=== PATIENT | female | born 1950 | race American Indian/Alaskan Native ===

== ENCOUNTER 2020-10-31 03:12 | Emergency (ER) | payer OTHER ==
[2020-10-31 03:22] VITALS: TEMP 98.1; BMI 28.2
[2020-10-31] MEDS ORDERED: ASPIRIN 81 MG CHEWABLE TABLETS PO ONE (03:55)
[2020-10-31] MEDS ORDERED: ASPIRIN 81 MG CHEWABLE TABLETS ONE (04:04)
[2020-10-31] MEDS ORDERED: NITROGLYCERIN SUBLINGUAL 1/200 0.3 MG BTL SL ONE (04:15)
[2020-10-31 04:28] LABS: EOS % 4.4 % (0-4.5); HEMATOCRIT 36.8 % (32.4-45.2); HEMOGLOBIN 12.5 GM/dL (10.7-15.3); LYMPH % 20.7 % (8-40); MCH 30.3 pg (25.7-33.7); MCHC 33.9 g/dl (32.0-36.0); MEAN CELL VOLUME 89.4 fl (80-96); MONO % 7.6 % (3.8-10.2); NEUT % 66.3 % (42.8-82.8); PLATELET COUNT 212 10^3/uL (134-434); RBC 4.12 M/mm3 (3.60-5.2); WHITE BLOOD COUNT 6.6 K/mm3 (4.0-10.0)
[2020-10-31] MEDS ORDERED: NITROGLYCERIN SUBLINGUAL 1/150 0.4 MG TAB ONE (04:30)
[2020-10-31 04:42] LABS: INR 0.9 (0.83-1.09); PROTHROMBIN TIME (PATIENT) 11.1 SEC (9.7-13.0)
[2020-10-31 04:45] LABS: ACTIVATED PTT 27.1 SECONDS (25.2-36.5)
[2020-10-31 04:49] LABS: MAGNESIUM 1.9 mg/dL (1.8-2.4)
[2020-10-31 04:53] LABS: PHOSPHOROUS 3.1 mg/dL (2.5-4.9)
[2020-10-31] MEDS ORDERED: NITROGLYCERIN 2% OINTMENT - 1GM PACKET TD ONE ×2 (05:29→05:37)
[2020-10-31] MEDS ORDERED: HEPARIN NA (PORCINE) 5,000 UNITS/ML 1ML VIAL IVPUSH PRN ×2 (05:31)
[2020-10-31] MEDS ORDERED: HEPARIN INFUSION - 25,000 UNITS/500 ML INFUS.BAG IVPB SCH (05:45)
[2020-10-31] MEDS ORDERED: HEPARIN NA (PORCINE) 5,000 UNITS/ML 1ML VIAL ONE (05:47)
[2020-10-31 06:06] LABS: ALBUMIN 3.5 g/dl (3.4-5.0); BLOOD UREA NITROGEN 17.2 mg/dL (7-18); CALCIUM 8.8 mg/dL (8.5-10.1)
[2020-10-31 06:10] LABS: CREATININE 0.7 mg/dL (0.55-1.3)
[2020-10-31 06:11] VITALS: BP 119/76; PULSE 65
[2020-10-31 06:11] LABS: BILIRUBIN,TOTAL 0.5 mg/dL (0.2-1); TOT PROT 6.8 g/dl (6.4-8.2)
== END 2020-10-31 06:23 | disposition short-term general hospital (02) ==
LOC: JER 03:12
PROC: 3E033GC Introduction of Other Therapeutic Substance into Peripheral Vein, Percutaneous Approach (ICD-10-PCS; principal; 2020-10-31)
PROC: 3E033GC Introduction of Other Therapeutic Substance into Peripheral Vein, Percutaneous Approach (ICD-10-PCS; 2020-10-31)
DX: I21.4 Non-ST elevation (NSTEMI) myocardial infarction (principal)
CPT/HCPCS: 36415; 71045-TC-FY; 80053; 82550; 82553; 83690; 83735; 84100; 84484; 85025; 85610; 85730; 93005; 93010; 99284-25; C9803; J1644; U0003; U0005

== ENCOUNTER 2022-12-18 19:49 | Observation (INO) | payer OTHER ==
[2022-12-18] MEDS ORDERED: FAMOTIDINE 20 MG/50 ML IVPB 20 MG/50 ML MG IVPB ONE ×3 (20:35→21:21)
[2022-12-18] MEDS ORDERED: ONDANSETRON 4 MG/2 ML VIAL IVPUSH ONE (20:35)
[2022-12-18] MEDS ORDERED: ACETAMINOPHEN 1000 MG/100 ML BAG IVPB ONE (20:35)
[2022-12-18] MEDS ORDERED: ACETAMINOPHEN INJECTION 100 ML IVPB ONE (20:55)
[2022-12-18] MEDS ORDERED: ONDANSETRON 4 MG/2 ML VIAL ONE (20:56)
[2022-12-18 21:08] LABS: BASO % 0.6 % (0-2.0); EOS % 2.1 % (0-4.5); HEMATOCRIT 35.8 % (32.4-45.2); HEMOGLOBIN 12.3 GM/dL (10.7-15.3); LYMPH % 18.3 % (8-40); MCH 30.1 pg (25.7-33.7); MCHC 34.3 g/dl (32.0-36.0); MEAN CELL VOLUME 87.6 fl (80-96); PLATELET COUNT 186 10^3/uL (134-434); RBC 4.09 M/mm3 (3.60-5.2); RDW 13.7 % (11.6-15.6); WHITE BLOOD COUNT 7.1 K/mm3 (4.0-10.0)
[2022-12-18 21:16] LABS: INR 0.91 (0.83-1.09); PROTHROMBIN TIME (PATIENT) 10.6 SEC (9.7-13.0)
[2022-12-18 21:19] LABS: ACTIVATED PTT 29.6 SECONDS (25.2-36.5)
[2022-12-18 21:51] LABS: POTASSIUM 3.8 mmol/L (3.5-5.1)
[2022-12-18 21:53] LABS: CALCIUM 8.6 mg/dL (8.5-10.1)
[2022-12-18 21:54] LABS: ALBUMIN 3.6 g/dl (3.4-5.0); BLOOD UREA NITROGEN 13.3 mg/dL (7-18)
[2022-12-18 21:57] LABS: CREATININE 0.8 mg/dL (0.55-1.3)
[2022-12-18 21:58] LABS: BILIRUBIN,TOTAL 0.3 mg/dL (0.2-1); TOT PROT 6.9 g/dl (6.4-8.2)
[2022-12-18] MEDS ORDERED: ASPIRIN 81 MG CHEWABLE TABLETS PO ONE (23:18)
[2022-12-18] MEDS ORDERED: ASPIRIN 81 MG CHEWABLE TABLETS ONE (23:51)
[2022-12-18] MEDS ORDERED: MECLIZINE HCL 25 MG TABLET (FP) PO ONE (23:55)
[2022-12-18] MEDS ORDERED: MECLIZINE HCL 25 MG TABLET (FP) ONE (23:59)
[2022-12-19] MEDS ORDERED: ASPIRIN 81 MG CHEWABLE TABLETS PO ONE (03:12)
[2022-12-19 07:36] LABS: HEMATOCRIT 38.7 % (32.4-45.2); HEMOGLOBIN 12.8 GM/dL (10.7-15.3); MCH 29.6 pg (25.7-33.7); MEAN CELL VOLUME 89.9 fl (80-96); MEAN PLT VOLUME 7.3 fl (7.5-11.1); PLATELET COUNT 198 10^3/uL (134-434); RBC 4.31 M/mm3 (3.60-5.2); RDW 13.4 % (11.6-15.6)
[2022-12-19] MEDS ORDERED: METOPROLOL TARTRATE 25 MG TABLET (FP) ONE (08:49)
[2022-12-19] MEDS ORDERED: ENOXAPARIN NA (PORCINE) 80 MG/0.8 ML DISP.SYRIN SQ ONE (08:49)
[2022-12-19 08:53] LABS: ALBUMIN 3.6 g/dl (3.4-5.0); BILIRUBIN,TOTAL 0.6 mg/dL (0.2-1); BLOOD UREA NITROGEN 9.9 mg/dL (7-18); CALCIUM 9.1 mg/dL (8.5-10.1); CREATININE 0.8 mg/dL (0.55-1.3); POTASSIUM 4.4 mmol/L (3.5-5.1); TOT PROT 7.4 g/dl (6.4-8.2)
[2022-12-19 08:57] LABS: CHOLESTEROL 226 mg/dL (50-200)
[2022-12-19 08:58] LABS: LDL CHOLESTEROL (ONLY SJRH) 136 mg/dL (5-100)
[2022-12-19 09:00] LABS: HDL CHOLESTEROL 77 mg/dL (40-60)
[2022-12-19] MEDS: ENOXAPARIN NA (PORCINE) 80 MG/0.8 ML DISP.SYRIN SQ SCH ×2 (09:35→22:18)
[2022-12-19] MEDS: METOPROLOL TARTRATE 25 MG TABLET (FP) PO SCH ×2 (09:35→22:18)
[2022-12-19] MEDS ORDERED: ENOXAPARIN NA (PORCINE) 40 MG/0.4 ML DISP.SYRIN SQ SCH (10:00)
[2022-12-19] MEDS ORDERED: METOPROLOL TARTRATE 25 MG TABLET (FP) PO SCH (10:00)
[2022-12-19] MEDS ORDERED: PATIENT'S OWN MEDICATION (NON-FORMULARY) (Bisoprolol Fumarate [Bisoprolol Fumarate] 5 MG T PO SCH (10:00)
[2022-12-19 21:28] VITALS: BMI 29.5
[2022-12-19] MEDS ORDERED: ATORVASTATIN CA 40 MG TABLET (FP) PO SCH (22:00)
[2022-12-20] MEDS ORDERED: ASPIRIN 81 MG CHEWABLE TABLETS PO SCH (10:00)
[2022-12-20] MEDS: ENOXAPARIN NA (PORCINE) 80 MG/0.8 ML DISP.SYRIN SQ SCH (10:43)
[2022-12-20] MEDS: METOPROLOL TARTRATE 25 MG TABLET (FP) PO SCH (10:43)
[2022-12-20 13:45] VITALS: BP 132/86; PULSE 72; RESP 24; TEMP 98.4
== END 2022-12-20 14:08 | disposition home or self-care (01) ==
LOC: JER 19:49 → INTOOBSV 23:52 → JERBED 23:52 → UNDOADMOB 23:52 → JERBED 12-19 00:58 → J4W 12-19 21:06
PROVIDERS: ADMIT Internal Medicine
PROC: 3E033NZ Introduction of Analgesics, Hypnotics, Sedatives into Peripheral Vein, Percutaneous Approach (ICD-10-PCS; principal; 2022-12-19)
PROC: 3E033GC Introduction of Other Therapeutic Substance into Peripheral Vein, Percutaneous Approach (ICD-10-PCS; 2022-12-19)
PROC: 3E023GC Introduction of Other Therapeutic Substance into Muscle, Percutaneous Approach (ICD-10-PCS; 2022-12-19)
DX: I51.81 Takotsubo syndrome (principal); I50.9 Heart failure, unspecified; R51.9 Headache, unspecified; E78.5 Hyperlipidemia, unspecified; R10.13 Epigastric pain
CPT/HCPCS: 36415; 71045-TC-FY; 80053; 80061; 83036; 83735; 83880; 84484; 85025; 85027; 85610; 85730; 93005; 93010; 93306-TC; 96365; 96368; 96372; 96375; 99285-25; G0378